=== PATIENT | female | born 1970 | race Caucasian/White ===

== ENCOUNTER 2017-08-31 18:10 | Emergency (ER) | payer MEDICAID, OTHER ==
[~2017-08-31] VITALS: Ht 167.6 cm; Wt 68.0 kg
[~2017-08-31 18:10] MED LIST: PARO10OR3 PO
[2017-08-31] MEDS ORDERED: ACETAMINOPHEN 325 MG TABLET PO ONE (19:15)
[2017-08-31] MEDS ORDERED: POLYMYXIN B/TRIMETHOPRIM 10 ML OPHTHALMIC SOLUTION OU ONE (19:15)
[2017-08-31 20:01] VITALS: BP 124/75
== END 2017-08-31 20:05 | disposition home or self-care (01) ==
LOC: EMS 18:11
DX: H10.89 Other conjunctivitis (principal); H10.13 Acute atopic conjunctivitis, bilateral
CPT/HCPCS: 99283